=== PATIENT | female | born 1980 | race Caucasian/White ===

== ENCOUNTER → 2021-03-07 09:17 | Outpatient (BNVA) | payer OTHER, SELFPAY | PROVIDERS: Visit Provider Nurse Practitioner Family | DX: Z20.822 Contact with and (suspected) exposure to COVID-19 (principal) | CPT/HCPCS: 87635 ==

== ENCOUNTER → 2021-06-18 10:56 | Outpatient (BNVA) | payer BC, SELFPAY | PROVIDERS: Visit Provider Nurse Practitioner Family | DX: Z20.822 Contact with and (suspected) exposure to COVID-19 (principal) | CPT/HCPCS: 87635 ==

== ENCOUNTER → 2021-07-20 09:44 | Outpatient (BNVA) | payer BC, SELFPAY | PROVIDERS: PCP Nurse Practitioner Family; Visit Provider Nurse Practitioner Family | DX: Z00.00 Encounter for general adult medical examination without abnormal findings (principal); F10.10 Alcohol abuse, uncomplicated; F17.200 Nicotine dependence, unspecified, uncomplicated; R53.83 Other fatigue | CPT/HCPCS: 80053; 82607; 83036; 83550; 84439; 84443; 85025 ==

== ENCOUNTER 2021-09-28 07:19 | Outpatient (CLI) | payer BC, SELFPAY ==
--- NOTE | 2021-09-28 07:24 | MM_ITS ---
WS: [id number] BILATERAL SCREENING DIGITAL BREAST TOMOSYNTHESIS MAMMOGRAM WITH CAD HISTORY: SCREENING COMPARISON: None available. Bilateral CC and MLO views with tomosynthesis and synthetic mammography submitted. Computer aided det ection analyzed. Breast composition: There are scattered areas of fibroglandular density. No suspicious masses, microc alcifications or architectural distortion. MM/[place] [id number] IMPRESSION: BI-RADS: 1-Negative FOLLOW UP: 1 Year Follow-up
== END 2021-09-28 07:20 | disposition home or self-care (01) ==
LOC: RAD 07:20
PROVIDERS: PCP Nurse Practitioner Family; Visit Provider Nurse Practitioner Family
DX: Z12.31 Encounter for screening mammogram for malignant neoplasm of breast (principal)
CPT/HCPCS: 77063; 77067

== ENCOUNTER 2021-10-04 06:00 | Outpatient (RCR) | payer BC, SELFPAY | END 2021-10-16 23:59 | disposition home or self-care (01) | LOC: SPT 06:00 | PROVIDERS: PCP Nurse Practitioner Family; Referring Provider Nurse Practitioner Family; Visit Provider Nurse Practitioner Family | DX: S33.5XXD Sprain of ligaments of lumbar spine, subsequent encounter (principal); X58.XXXD Exposure to other specified factors, subsequent encounter | CPT/HCPCS: 97110; 97161 ==

== ENCOUNTER 2021-10-17 06:00 | Outpatient (RCR) | payer BC, SELFPAY | END 2021-11-15 23:59 | disposition home or self-care (01) | LOC: SPT 06:00 | PROVIDERS: PCP Nurse Practitioner Family; Referring Provider Nurse Practitioner Family; Visit Provider Nurse Practitioner Family | DX: S33.5XXD Sprain of ligaments of lumbar spine, subsequent encounter (principal); X58.XXXD Exposure to other specified factors, subsequent encounter | CPT/HCPCS: 97110 ==

== ENCOUNTER 2021-12-10 13:05 | Outpatient (CLI) | payer BC, SELFPAY ==
--- NOTE | 2021-12-10 13:00 | US_ITS ---
WS: [id number] THYROID ULTRASOUND HISTORY: DIFFUSE GOITER COMPARISON: None available. Right lobe: 1.8 cm x 2.0 cm x 5.1 cm (w x ap x l). Volume: 9.8 cm3. Moderately enlarged heterogeneous gland with increased vascularity. There are scattered low-attenuati on nodule. Probably colloid cysts. These are very small nodules. No echogenic foci. Left lobe: 1.9 cm x 1.7 cm x 4.3 cm (w x ap x l). Volume: 7.3 cm3. Mildly enlarged gland with heterogeneity and increased vascularity. Isthmus: 0.5 cm. Bilateral small cervical chain lymph nodes. US/US thyroid [id number] IMPRESSION: 1. Enlarged heterogeneous, mildly hypervascular thyroid gland. Consider Hashim vasquez's thyroiditis. 2. No dominant or suspicious mass.
== END 2021-12-10 13:06 | disposition home or self-care (01) ==
PROVIDERS: PCP Nurse Practitioner Family; Visit Provider Nurse Practitioner Family
DX: E04.9 Nontoxic goiter, unspecified (principal)
CPT/HCPCS: 76536

== ENCOUNTER 2023-05-05 12:47 | Outpatient (CLI) | payer OTHER, SELFPAY ==
--- NOTE | 2023-05-05 13:20 | US_ITS ---
WS: [id number] THYROID ULTRASOUND HISTORY: GOITER COMPARISON: 12/10/2021 Right lobe: 1.7 cm x 2.2 cm x 4.5 cm (w x ap x l). Volume: 8.6 cm3. Mildly enlarged heterogeneous thyroid with slight increased vascularity. There is scattered very smal l hypoechoic nodules which are most likely related to Liliam's thyroiditis. No discrete well-circu mscribed mass. Left lobe: 1.9 cm x 1.4 cm x 4.2 cm (w x ap x l). Volume: 5.7 cm3. Minimally prominent thyroid gland with scattered very small nodules and increased vascularity. Simila r to the prior study. No suspicious mass or nodule. Isthmus: 0.4 cm. IMPRESSION: 1. Slightly enlarged, mildly hypervascular gland. Most typical appearance for Liliam's thyroiditis . 2. No discrete thyroid nodule. No lymphadenopathy.
== END 2023-05-05 12:48 | disposition home or self-care (01) ==
PROVIDERS: PCP Family Medicine; Visit Provider Nurse Practitioner Family
DX: E04.9 Nontoxic goiter, unspecified (principal)
CPT/HCPCS: 76536

== ENCOUNTER 2023-05-16 14:19 | Outpatient (CLI) | payer OTHER, SELFPAY ==
--- NOTE | 2023-05-16 14:24 | MM_ITS ---
WS: [id number] BILATERAL 3D TOMOSYNTHESIS DIGITAL SCREENING MAMMOGRAPHY WITH CAD CLINICAL INFORMATION: SCREENING HISTORY: Screening mammogram. No current complaints. COMPARISON: 2021 TECHNIQUE: Bilateral CC and MLO views. FINDINGS: The breasts are composed of heterogeneous fibroglandular density tissue, which can limit the detectio n of small underlying mass lesions. No suspicious mass, asymmetry, calcifications, or architectural d istortion. No evidence of malignancy. IMPRESSION: MM/[place] [id number] BI-RADS: 1-Negative FOLLOW UP: 1 Year Follow-up Recommend return to annual screening mammography.
== END 2023-05-16 14:20 | disposition home or self-care (01) ==
LOC: RAD 14:19
PROVIDERS: PCP Family Medicine; Visit Provider Nurse Practitioner Family
DX: Z12.31 Encounter for screening mammogram for malignant neoplasm of breast (principal)
CPT/HCPCS: 77063; 77067